=== PATIENT | male | born 1945 | race Caucasian/White ===

== ENCOUNTER → 2016-08-29 | Outpatient (CLI) | payer BC, MEDICARE, OTHER ==
--- NOTE | 2016-08-29 21:23 | CONS ---
DATE OF SERVICE: 08/29/2016 REASON FOR CONSULTATION: Sleep apnea. This is a 71-year-old male patient presenting to the sleep center due to concerns about obstructive sleep apnea. His girlfriend has noted that the patient snores loudly, especially when he is on his back, and he quits breathing on multiple occasions throughout the night. As such, he was referred to me. Clinically the patient is doing okay. He is not having any major hypersomnia or sleepiness during the day. He does not fall asleep while driving. His current [place] score is 10. No motor vehicle accident because of feeling drowsy or sleepy. No recent weight gain. He goes to bed around midnight and he wakes up between 6 and 7 a.m. in the morning. No body aches. No nocturnal heartburn. No nocturnal chest pain or shortness of breath. PAST MEDICAL HISTORY: 1. Diabetes mellitus. 2. Hyperlipidemia. 3. Coronary artery disease with previous history of coronary stent. Surgical history includes orthopedic surgery for broken femur, pelvis and shoulder. ALLERGIES: NOT KNOWN. Outpatient medication list includes: 1. Lisinopril 20 per day. 2. Glimepiride 2 mg per day. 3. Metoprolol 25 mg twice a day. 4. Venlafaxine 75 mg p.o. daily. 5. Protonix 40 mg p.o. daily. 6. Metformin 1 gram twice a day. 7. Zocor 40 daily. 8. Aspirin 325 daily. 9. Lumigan eye drops. SOCIAL HISTORY: The patient is a non-smoker. No history of alcoholism. No history of IV drugs. FAMILY HISTORY: Non-contributory. He thinks that his nephew has obstructive sleep apnea. REVIEW OF SYSTEMS: Twelve-point review of systems was done. No other positive findings other than things mentioned above in the history of present illness. CURRENT VITALS: Blood pressure is 121/70, pulse 71, respiration 16, temperature 98.2, saturation 94% on room air. Weight is 217. Height is 5 feet 8 inches. Neck size 17 inches. [place] score is 10. GENERAL APPEARANCE: Calm, comfortable. HEENT: Mallampati class I. No goiter or neck masses. LUNGS: Clear to auscultation. Heart sounds are regular rate and rhythm. Normal S1, S2. ABDOMEN: Soft, non-tender. EXTREMITIES: No edema. No cyanosis or clubbing. IMPRESSION: 1. Obstructive sleep apnea suspected clinically, although the overall clinical suspicion is lower. 2. Diabetes. 3. Coronary artery disease. 4. Hyperlipidemia. PLAN: Proceed with a screening polysomnogram and make treatment decisions accordingly. MTDD
== END ==
LOC: SLEEP 14:38
PROVIDERS: ATTEND Internal Medicine Critical Care Medicine
DX: E11.9 Type 2 diabetes mellitus without complications (principal); I25.10 Atherosclerotic heart disease of native coronary artery without angina pectoris; E78.5 Hyperlipidemia, unspecified; Z79.82 Long term (current) use of aspirin; Z79.899 Other long term (current) drug therapy; Z79.84 Long term (current) use of oral hypoglycemic drugs
CPT/HCPCS: 99211

== ENCOUNTER → 2017-07-18 | Outpatient (CLI) | payer MEDICARE, OTHER ==
--- NOTE | 2017-07-18 18:31 | PN ---
PROGRESS NOTE Alexander is coming in for followup regarding his obstructive sleep apnea treatment. I diagnosed the patient having severe BREANNA with an AHI of 61, and currently he is on CPAP therapy. The patient is in auto mode with a maximum pressure of 15. Minimum pressure of 4. He is benefiting from the treatment. He reports marked improvement in his tolerability and clinical response while being on CPAP. Upon checking on his machine, the patient has been averaging around 5.4 hours of CPAP use which is improved compared to his last evaluation 6 months ago. His leak is also improved around the mask and the patient is using a DreamWear nose pillow and his leak is down to 23 L per minute. His AHI while on therapy is down to 1.9. He is averaging 5.4 hours and his CPAP use for more than 4 hours is approaching 77%. His average CPAP pressure on the auto mode is 10.9, his weight is 290 which is stable compared to his last evaluation. He is benefitting from treatment. He is refreshed and alert during the day. He has no specific complaints. He likes his Dreamwear nose mask. REVIEW OF SYSTEMS: 12-point review of system was done. Positive findings are mentioned above in the history of present illness. No sleep fragmentation. No nighttime pain. No nighttime dyspnea. Chest pain, cough, heartburn, anxiety, night terrors, dreams and nightmares. His current [place] Score is 10. PHYSICAL EXAMINATION: BP is 126/62, pulse 65, respirations 16, temperature is 97.3, weight 219, height is 5 feet 7 inches, [place] score 10. BMI is 33.7, saturation 94% on room air. GENERAL APPEARANCE: Calm comfortable. HEENT: Head is atraumatic, normocephalic. NECK: Supple. There is no JVD. No goiter or neck mass. Mallampati class 4. LUNGS: CARDIOVASCULAR: Sounds are regular rate and rhythm. Normal S1, normal S2. No murmur. ABDOMEN: Soft, nontender. No palpable organomegaly. EXTREMITIES: No edema. No cyanosis or clubbing. IMPRESSION: 1. Severe obstructive sleep apnea AHI of 61. The patient is undergoing successful CPAP therapy on APAP with APAP at a minimum pressure of 5, maximum pressure of 13. He has demonstrated excellent clinical response and compliance. 2. Hypersomnia, improved. 3. Obesity, stable weight. 4. Diabetes mellitus. 5. Hypertension. 6. Hyperlipidemia. 7. Coronary artery disease. PLAN: Continue the same treatment and review the medication and supplies. Keep the same CPAP pressure. Very happy with the overall clinical response and compliance. See me back in a year's time earlier if needed. Treatment is successful for now. MMODL / IJN: [id number] /
== END | disposition home or self-care (01) ==
LOC: SLEEP 15:11
PROVIDERS: ATTEND Internal Medicine Critical Care Medicine
DX: G47.33 Obstructive sleep apnea (adult) (pediatric) (principal); E66.9 Obesity, unspecified; E11.9 Type 2 diabetes mellitus without complications; I10 Essential (primary) hypertension; E78.5 Hyperlipidemia, unspecified; I25.10 Atherosclerotic heart disease of native coronary artery without angina pectoris; Z99.89 Dependence on other enabling machines and devices; Z68.33 Body mass index [BMI] 33.0-33.9, adult

== ENCOUNTER → 2017-08-06 | Outpatient (CLI) | payer MEDICARE, OTHER ==
[2017-08-06 11:21] LABS: HCT 39.8 % (39.0-53.0); HGB 13.3 gm/dL (13.0-17.5); MCH 29.3 pg (25.0-35.0); MCHC 33.3 g/dL (31.0-37.0); Mean Platelet Volume 6.6; Platelet Count 132 k/uL (150-450); RBC 4.52 m/uL (4.30-5.90); RDW 12.8 % (11.5-15.5); WBC 4.1 k/uL (3.8-10.6)
[2017-08-06 11:32] LABS: Anion Gap 12 mmol/L; Blood Urea Nitrogen 17 mg/dL (9-20); Carbon Dioxide 25 mmol/L (22-30); Chloride 103 mmol/L (98-107); Potassium 4.3 mmol/L (3.5-5.1); Sodium 140 mmol/L (137-145)
== END | disposition home or self-care (01) ==
LOC: LABWHC1 10:42
PROVIDERS: ATTEND Internal Medicine Interventional Cardiology
DX: Z01.812 Encounter for preprocedural laboratory examination (principal); R07.9 Chest pain, unspecified
CPT/HCPCS: 36415; 80051; 82565; 84520; 85027

== ENCOUNTER → 2017-08-07 | Day surgery (SDC) | payer MEDICARE, OTHER ==
[2017-08-06 09:28] VITALS: BMI 31.6
[~2017-08-07] MED LIST: ALPRAZolam 0.25 MG TAB PO PRN; ALPRAZolam 0.5 MG TAB PO PRN; ASPIRIN 325 MG TAB PO SCH; ASPIRIN 325 MG TAB PO STA; ATORVASTATIN 80 MG TAB PO STA; GLIMEPIRIDE 2 MG TAB PO SCH; HEPARIN SODIUM 1,000 UN/ML (10ML VL) IV ONE; HEPARIN SODIUM 1,000 UN/ML (10ML VL) ONE; IOPAMIDOL-370 125ML BTL INJ ONE; LIDOCAINE 1% INJ 10MG/ML (20 ML MDV) ONE; LIDOCAINE 1% INJ 10MG/ML (20 ML MDV) SQ ONE; METOPROLOL TARTRATE 50 MG TAB PO SCH; NITROGLYCERIN SL TABS 0.4 MG TAB SUBLINGUAL PRN; NON-FORMULARY DRUG (Simvastatin [Simvastatin] 40 MG) PO SCH; PANTOPRAZOLE 40 MG TABLET PO SCH; RX INFO: IV CONTRAST WAS GIVEN 1 EACH MISC MISCELLANE PRN; SILDENAFIL CITRATE 50 MG PO PRN; SODIUM CHLORIDE 0.9% 1,000 ML IV ONE; SODIUM CHLORIDE 0.9% 1,000 ML IV SCH; SODIUM CHLORIDE 0.9% 1,000 ML in EMPTY BAG 1 BAG IV ONE; VENLAFAXINE HCL 75 MG PO SCH; VERAPAMIL 2.5 MG/ML 2 ML AMP ONE; VERAPAMIL SYRINGE (5 MG/10 ML) INTRAARTER ONE; fentaNYL (PF) 50 MCG/ML 2 ML AMP IVP ONE; fentaNYL (PF) 50 MCG/ML 2 ML AMP ONE
[2017-08-07 07:34] LABS: Glucose,Whole Blood 177 mg/dL (75-99)
[2017-08-07 09:28] VITALS: BP 162/71; RESP 18
--- NOTE | 2017-08-07 09:37 | CC ---
CARDIAC CATHETERIZATION REPORT Mr. Harp is a 71-year-old male with a history of coronary artery disease, status post percutaneous revascularization of his left circumflex in 2010, history of hypertension, hyperlipidemia, diabetes mellitus, who has been complaining of progressive dyspnea on exertion and fatigue. He underwent myocardial perfusion imaging that revealed evidence of inducible ischemia. In view of that, recommendation was made regarding cardiac catheterization. The procedure as well as the risks and the complications were discussed with the patient and is in full understanding and agreement. PROCEDURE: Patient was brought to the clinical laboratory director in a fasting semi-sedated state after receiving fentanyl Benadryl and achieving moderate conscious sedated state. Using Xylocaine anesthesia in the Seldinger technique, a 6-[place] sheath was introduced in the right radial artery. Selective right and left coronary angiography performed using 5-[place] 3 and 3.5 bend right and left Katlin catheter. Multiple views of the coronary artery including hemiaxial views were obtained. Following that, a 5-[place] tight pigtail catheter was introduced in the left ventricle and a 30-degree MARTINEZ view of the left ventricle was obtained. Following that, catheter and sheaths were removed. Hemostasis was obtained with deployment of a TR band. There was no immediate complication. Patient was returned to his room in stable condition. FINDINGS: LEFT MAIN: This is a short size vessel, large in caliber bifurcating in left circumflex and , left anterior descending artery. Left main coronary artery has no evidence of high-grade stenosis. LEFT ANTERIOR DESCENDING ARTERY: This is a large-sized vessel reaching toward the apex with a wraparound apex segment giving rise to a large diagonal branch in the mid segment. The left anterior descending artery is calcified in the proximal mid segment, has diffuse tubular area of lesion with stenosis up to 50% involving the proximal and mid segment. After the takeoff of the diagonal branch, there was no evidence of high- grade stenosis. LEFT CIRCUMFLEX: This is a nondominant vessel giving rise to 2 obtuse marginal branches. The first one is very proximal. After the takeoff of the obtuse marginal branch, the stented segment is patent with no evidence of significant restenosis. There was mild intimal disease in left circumflex without any evidence of high-grade stenosis. RIGHT CORONARY ARTERY: This is a dominant vessel large in caliber bifurcating PDA and posterolateral segment and branches. The right coronary artery in mid segment has a plaque of 30% to 40%. The PDA has diffuse intimal disease with area of stenosis up to 70%, but the caliber of the vessel is small. LEFT VENTRICULOGRAM: Left ventriculogram is performed in 30-degree MARTINEZ view and revealed normal left ventricular size and systolic function. Ejection fraction is 60%. There was no significant mitral regurgitation. HEMODYNAMICS: There was no gradient across the aortic valve. The left ventricle end- diastolic pressure is 12 mmHg. CONCLUSION: 1. Mild to moderate triple-vessel coronary artery disease with no evidence of restenosis at the site of the prior stented segment in the left circumflex. 2. Normal left ventricular size and systolic function. RECOMMENDATION: In view of finding anatomy, recommend continue medical therapy with aggressive coronary risk modification that has been initiated. Those findings and recommendations were discussed with the patient and his family and are in full understanding and agreement. Duration of procedure is 19 minutes. SHAWNA / SILVA: [id number] /
== END | disposition home or self-care (01) ==
LOC: CATHCVL 06:21
PROVIDERS: ATTEND Internal Medicine Interventional Cardiology
DX: I25.10 Atherosclerotic heart disease of native coronary artery without angina pectoris (principal); E11.9 Type 2 diabetes mellitus without complications; I10 Essential (primary) hypertension; E78.2 Mixed hyperlipidemia; Z86.718 Personal history of other venous thrombosis and embolism; G47.33 Obstructive sleep apnea (adult) (pediatric); Z99.89 Dependence on other enabling machines and devices; Z79.82 Long term (current) use of aspirin; Z79.84 Long term (current) use of oral hypoglycemic drugs; Z79.899 Other long term (current) drug therapy; Z82.49 Family history of ischemic heart disease and other diseases of the circulatory system
CPT/HCPCS: 93458; C1894; C1769; J2001; J3010; J1644; Q9967

== ENCOUNTER → 2018-10-08 | Outpatient (CLI) | payer MEDICARE, OTHER ==
--- NOTE | 2018-10-08 12:17 | P.PN ---
Subjective Progress Note Date: 10/08/18 Principal diagnosis: BREANNA This is a follow-up for Alexander times was seeing me at the sleep Center for obstructive sleep apnea. The patient has a diagnosis severe BREANNA with an AHI of 61 and he has been on CPAP therapy utilizing an APAP mode with a minimum pressure of 4 and a maximum pressure of 13. Since his last evaluation, the patient was able to lose around 9 pounds. He used to weigh 219 pounds and currently is down to 210. He is undergoing diet.. He feels good. He has no specific complaints. He is utilizing his CPAP on average of 5.7 hours per night. His CPAP use for more than 4 hours is 20 of the the past 30 days. His leak is around 24 L per minute and the patient's AHI while in treatment is down to 2.2. He feels well. He is waking up refreshed and alert during the day specially on the nights that he wears his CPAP unit. He is using a dreamware under the nose medium wide and is quite comfortable with the current mask. He is also requesting for all of his supplies to be renewed. He has no specific complaints. No hypersomnia and sleepiness during the day. No tiredness or fatigue. Does not follow. Was driving. No angina. No palpitations. No chest pain. No heartburn overnight. The patient is functioning properly and there has been no other significant events over the past 12 months. His current Fay score is at 10. Objective - Exam The patient's BP is 145/73 with a pulse of 70 and respiration of 16 with a temperature of 98.2. His weight is up to 10, height is 51 and the patient's Fay score is at 10. The patient appeared well nourished and normally developed. Vital signs as documented. Head exam is unremarkable. No scleral icterus or corneal arcus noted. Neck is without jugular venous distension, thyromegaly, or carotid bruits. The patient has a Mallampati class IV. Carotid upstrokes are brisk bilaterally. Lungs are clear to auscultation and percussion. Cardiac exam reveals the PMI to be normally sized and situated. Rhythm is regular. First and second heart sounds normal. No murmurs, rubs or gallops. Abdominal exam reveals normal bowel sounds, no masses, no organomegaly and no aortic enlargement. Extremities are nonedematous and both femoral and pedal pulses are normal.Examination of the skin revealed no evidence of significant rashes, suspicious appearing nevi or other concerning lesions. Neurologically is awake and alert and there is no focal neurological deficits. Assessment and Plan Assessment: Review of systems a 14 point review of system was done and the positive findings are almost above in history of present illness. No sleep paralysis. No hallucinations. No cataplexy. No parasomnias. No unusual or aggressive behavior at nighttime. No dreams. Impression 1 severe obstructive sleep apnea with an AHI of 61. The patient continues to be treated with an APAP with a minimum pressure of 4 and a maximum pressure of 13 and his treatment has been very successful over the past 12 months. He is losing weight. He is not having any major hypersomnia and sleepiness during the day. He needs to slightly improve his compliance he as there are certain days but he is not using his CPAP machine at all. Whenever he puts on the machine, the treatment is successful and he averages more than 5 hours with an AHI of less than 2.2. 2 obesity with interval weight loss. Current BMI 32.4 3 hypersomnia improving and the current Fay score is at 10 4 diabetes mellitus 5 hypertension 6 hyperlipidemia 7 coronary artery disease Plan Encourage further weight loss. Continue using the APAP mode on this patient. Based on the observed compliance data, the patient's average pressures at 10.31 using the automatic mode. No need for any further adjustments. We will refill the Supplies including the dreamware under the nose medium ramirez nasal mask. The patient is oriented to medical sleep hygiene measures. We'll continue to follow and the patient will be asked to see me back in a years time or earlier if needed. His treatment is successful for now. Demand improved compliancy.
== END | disposition home or self-care (01) ==
LOC: SLEEP 11:12
PROVIDERS: ATTEND Internal Medicine Critical Care Medicine
DX: G47.33 Obstructive sleep apnea (adult) (pediatric) (principal); E11.9 Type 2 diabetes mellitus without complications; I10 Essential (primary) hypertension; E78.5 Hyperlipidemia, unspecified; I25.10 Atherosclerotic heart disease of native coronary artery without angina pectoris; E66.9 Obesity, unspecified; Z68.32 Body mass index [BMI] 32.0-32.9, adult; Z99.89 Dependence on other enabling machines and devices

== ENCOUNTER → 2021-09-13 | Outpatient (CLI) | payer MEDICARE, OTHER ==
--- NOTE | 2021-09-13 15:17 | P.PN ---
Subjective Progress Note Date: 09/13/21 On today's evaluation of a 2 2021, the patient is not using his CPAP machine. Note that the patient was diagnosed having obstructive sleep apnea, severe and the patient has an AHI of 61. He was offered a CPAP machine and the patient was supposed to use it and a Pap mode at a minimum pressure of 4 and maximum pressure of 13 cm of water. He was also given dreamware under the nose mask, medium white. Note that over the years, the patient lost interest and the patient has not been using the machine. His girlfriend has been complaining from his loud snoring and the patient has noted some worsening in sleepiness and tiredness and fatigue. He is interested in going back on using his machine. I checked his machine and the machine is fully functional. He did inquire about other treatments including the possibility of an electro stimulation through Inspire system. Note that the patient has no angina. No palpitations. No chest pain. His been having increased sleepiness during the day. On a separate note, he was also diagnosed having a lung nodule which do not to be cancerous and the patient underwent a lobectomy and this was done in [place]. Since then, the patient is having serial CAT scans of the chest and this surgery was done in March 2020 and today, the patient does not have any evidence of recurrence. His weight is stable at 212 without any significant weight loss or weight gain compared to 2019. Objective - Exam BP is 144/66 with a pulse of 63 and a respiration of 16 and a temperature at 6.7 and an [place] score of 7 with a BMI of 32.5 and a body weight of 212 pounds. Pulse ox is 96% on room air oxygen. The patient appeared well nourished and normally developed. Vital signs as documented. Head exam is unremarkable. No scleral icterus or corneal arcus noted. Neck is without jugular venous distension, thyromegaly, or carotid bruits. Carotid upstrokes are brisk bilaterally. Lungs are clear to auscultation and percussion. Cardiac exam reveals the PMI to be normally sized and situated. Rhythm is regular. First and second heart sounds normal. No murmurs, rubs or gallops. Abdominal exam reveals normal bowel sounds, no masses, no organomegaly and no aortic enlargement. Extremities are nonedematous and both femoral and pedal pulses are normal.Examination of the skin revealed no evidence of significant rashes, suspicious appearing nevi or other concerning lesions.Neurologically, the patient is awake and alert and the patient does not have any focal neurological deficit. Cranial nerves are essentially intact. Assessment and Plan Plan: Severe symptomatically obstructive sleep apnea with an AHI of 61. Patient is currently not receiving any treatment. He has become symptomatic and he is having hypersomnia and the loud snore. Obesity, current weight is 212 pounds Hypersomnia, chronic, [place] score is at 7 Hypertension Diabetes mellitus Non-small cell lung cancer with a previous left upper lobe resection Coronary artery disease Hyperlipidemia Plan I do lengthy discussion with the patient discussing the treatment of obstructive sleep apnea and the various options available. To the best of my knowledge and considering his disease severity, the patient will be better served with a CPAP machine. He was convinced and then about discussion. He'll be off of the dreamware fullface mask or a airfit F30 i fullface mask and his arms alternative mass that was suggested to the patient to help him with the snoring treatment of obstructive sleep apnea. He will demonstrate compliancy. I'll come and see him back in a years time. He seems to be committed in going back on his machine. His other comorbidities are alive inactive and stable. We'll continue to follow and make further recommendations based on his progress.
== END ==
LOC: SLEEP 13:18
PROVIDERS: ATTEND Internal Medicine Critical Care Medicine
DX: G47.33 Obstructive sleep apnea (adult) (pediatric) (principal); E11.9 Type 2 diabetes mellitus without complications; I25.10 Atherosclerotic heart disease of native coronary artery without angina pectoris; C34.90 Malignant neoplasm of unspecified part of unspecified bronchus or lung; E78.5 Hyperlipidemia, unspecified; E66.9 Obesity, unspecified; I10 Essential (primary) hypertension; Z68.32 Body mass index [BMI] 32.0-32.9, adult; Z99.89 Dependence on other enabling machines and devices; Z87.891 Personal history of nicotine dependence; Z98.890 Other specified postprocedural states
CPT/HCPCS: 99211